=== PATIENT | female | born 1990 | race American Indian/Alaskan Native ===

== ENCOUNTER 2018-02-01 10:57 | Emergency (ER) | payer MEDICAID ==
[2018-02-01 11:32] VITALS: TEMP 98.5; O2SAT 100
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
[2018-02-01 12:42] LABS: HCG,QUALITATIVE URINE NEGATIVE (NEGATIVE); HEMOGLOBIN 11.7 g/dL (11.0-16.0); MEAN CELL VOLUME 90.4 fL (81.0-99.0); MEAN CORPUSCULAR HEMOGLOBIN 31.2 pg (27.0-31.0); MEAN CORPUSCULAR HGB CONC 34.5 g/dL (33.0-37.0); MEAN PLATELET VOLUME 8.7 fL (7.2-11.7); RBC 3.76 Mil/uL (3.80-5.20); RED CELL DISTRIBUTION WIDTH 12.8 % (11.5-14.5); WHITE BLOOD COUNT 3.7 K/uL (4.8-10.8)
[2018-02-01 12:44] LABS: SQUAMOUS EPITHIAL 1 /hpf (0-5); URINE BILIRUBIN NEGATIVE (NEGATIVE); URINE BLOOD 2+ (NEGATIVE); URINE CLARITY Clear (Clear); URINE COLOR Yellow (YELLOW); URINE GLUCOSE (UA) NORMAL (Normal); URINE LEUKOCYTE ESTERASE NEG Leu/uL (Negative); URINE PROTEIN NEGATIVE (NEGATIVE)
[2018-02-01 13:39] VITALS: BP 132/80; PULSE 80; RESP 20
== END 2018-02-01 13:18 | disposition home or self-care (01) ==
LOC: C.ER 10:57
DX: N92.1 Excessive and frequent menstruation with irregular cycle (principal)